=== PATIENT | male | born 1975 | race Two or more races ===

== ENCOUNTER → 2021-04-07 | Outpatient (CLI) | payer OTHER ==
--- NOTE | 2021-04-07 11:21 | KCIC ---
XR CHEST 1V INDICATION: Evaluate for TB. . COMPARISON STUDY: None. FINDINGS: Lungs: Normal lung volume. No pulmonary mass or consolidation. The tracheobronchial tree and hilar st ructures are normal. Pleura: No pleural effusion or pneumothorax. Heart and Mediastinum: The cardiomediastinal silhouette is normal. The great vessels of the thorax ar e normal. Bones and Soft Tissues: The bones and soft tissues are within normal limits. IMPRESSION: No acute cardiopulmonary process. Electronically signed by: Akira Christian MD (04/07/2021 11:19 AM) [id number]
== END ==
LOC: KCIC 09:15
PROVIDERS: ATTEND Internal Medicine Pulmonary Disease
DX: Z11.1 Encounter for screening for respiratory tuberculosis (principal)
CPT/HCPCS: 71045